=== PATIENT | female | born 1945 ===

== ENCOUNTER 2021-10-17 13:23 | Inpatient (IN) | payer OTHER ==
[~2021-10-17] VITALS: Ht 160 cm; Wt 98.9 kg
[2021-10-17 13:23] VITALS: BP_SYST 154
[2021-10-17] MEDS ORDERED: MORPHINE 4 MG INJ. 4 MG/ML VIAL IVP ONE ×2 (15:00→19:00)
[2021-10-17] MEDS ORDERED: NACL 0.9% 1,000 ML IV ONE (15:00)
[2021-10-17 15:25] LABS: BASOPHILS # (AUTO) 0.1 K/uL (0.0-0.2); BASOPHILS % (AUTO) 0.6 % (0.0-2.0); EOSINOPHILS # (AUTO) 0.1 K/uL (0.0-0.4); EOSINOPHILS % (AUTO) 1.6 % (0.0-4.0); HEMATOCRIT 40.6 % (36-48); HEMOGLOBIN 13.5 g/dL (12.0-16.0); LYMPHOCYTES # (AUTO) 2.3 K/uL (1.0-5.5); LYMPHOCYTES % (AUTO) 23.4 % (20.5-51.5); MEAN CORPUSCULAR HEMOGLOBIN 32 pg (27-31); MEAN CORPUSCULAR HGB CONC 33 % (32-36); MEAN CORPUSCULAR VOLUME 96 fL (79.0-98.0); MONOCYTES # (AUTO) 0.8 K/uL (0.0-1.0); MONOCYTES % (AUTO) 8.5 % (1.7-9.3); NEUTROPHILS # (AUTO) 6.3 K/uL (1.8-7.7); NEUTROPHILS % (AUTO) 65.9 % (40.0-70.0); PLATELET COUNT (AUTO) 178 K/uL (130-430); RED BLOOD CELL COUNT(AUTO) 4.24 MIL/uL (4.2-6.2); RED CELL DISTRIBUTION WIDTH 14.6 % (9.0-15.0); WHITE BLOOD COUNT (AUTO) 9.6 K/uL (4.8-10.8)
[2021-10-17 15:41] LABS: ANION GAP 9 (5-15); CALCIUM 9.1 mg/dL (8.4-11.0); CHLORIDE 103 mmol/L (98-107); CREATININE 0.82 mg/dL (0.55-1.30); GLUCOSE 98 mg/dL (70-99); SODIUM SERUM 139 mmol/L (136-145); UREA NITROGEN, BLOOD 21 mg/dL (8-21)
[2021-10-17 15:47] LABS: ALANINE AMINOTRANSFERASE 20 U/L (12-78); ALBUMIN 3.9 g/dL (3.4-4.8); ASPARTATE AMINOTRANSFERASE 20 U/L (10-37); TOTAL BILIRUBIN 1.4 mg/dL (0.0-1.0)
[2021-10-17] MEDS ORDERED: ONDANSETRON HCL 4 MG/2 ML VIAL IVP PRN (18:45)
[2021-10-17] MEDS ORDERED: ACETAMINOPHEN 325 MG TABLET PO PRN ×2 (18:45)
[2021-10-17] MEDS ORDERED: ONDANSETRON HCL 4 MG/2 ML VIAL IVP ONE (19:00)
[2021-10-17] MEDS ORDERED: LORazepam 2 MG/ML VIAL IVP ONE (19:00)
[2021-10-17] MEDS: LORazepam 2 MG/ML VIAL IVP PRN (19:07)
[2021-10-17 21:00] VITALS: BP_SYST 156
[2021-10-17] MEDS: D5/0.45 NS 1,000 ML IV SCH (22:59)
[2021-10-18 00:31] VITALS: BP_SYST 147
[2021-10-18] MEDS: traMADol HCL HCL 50 MG TABLET (ULTRAM) PO PRN ×4 (01:48→20:13)
[2021-10-18] MEDS ORDERED: POTA-178 PO (03:31)
[2021-10-18] MEDS ORDERED: LIP20 PO (03:31)
[2021-10-18] MEDS ORDERED: LOSA50TA3 PO (03:31)
[2021-10-18] MEDS ORDERED: METF-518 PO (03:31)
[2021-10-18] MEDS ORDERED: APIX5TAB PO (03:31)
[2021-10-18] MEDS ORDERED: ASPI-989 PO (03:31)
[2021-10-18] MEDS ORDERED: FURO-150 PO (03:31)
[2021-10-18] MEDS ORDERED: AMIO100T4 PO (03:31)
[2021-10-18] MEDS ORDERED: NEU300 PO ×2 (03:31)
[2021-10-18] MEDS: D5/0.45 NS 1,000 ML IV SCH ×2 (05:53→13:20)
[2021-10-18 08:00] VITALS: BP_SYST 138
[2021-10-18 08:01] LABS: BASOPHILS % (AUTO) 0.5 % (0.0-2.0); EOSINOPHILS # (AUTO) 0.2 K/uL (0.0-0.4); EOSINOPHILS % (AUTO) 2.6 % (0.0-4.0); HEMATOCRIT 35.7 % (36-48); MEAN CORPUSCULAR HEMOGLOBIN 32 pg (27-31); MEAN CORPUSCULAR HGB CONC 34 % (32-36); MEAN CORPUSCULAR VOLUME 96 fL (79.0-98.0); MONOCYTES # (AUTO) 0.9 K/uL (0.0-1.0); MONOCYTES % (AUTO) 10.2 % (1.7-9.3); NEUTROPHILS # (AUTO) 5.8 K/uL (1.8-7.7); NEUTROPHILS % (AUTO) 64.7 % (40.0-70.0); PLATELET COUNT (AUTO) 170 K/uL (130-430); RED BLOOD CELL COUNT(AUTO) 3.71 MIL/uL (4.2-6.2); RED CELL DISTRIBUTION WIDTH 14.6 % (9.0-15.0)
[2021-10-18] MEDS ORDERED: NALOXONE HCL 0.4 MG/ML AMP (NARCAN) IVP PRN (08:15)
[2021-10-18] MEDS: MORPHINE 2 MG/ML INJ. SYRINGE IVP PRN ×2 (12:27→18:02)
[2021-10-18] MEDS: POTASSIUM CHLORIDE 10 MEQ TAB.PRT.SR PO SCH (12:30)
[2021-10-18] MEDS: LOSARTAN POTASSIUM 50 MG TABLET (COZAAR) PO SCH (12:31)
[2021-10-18] MEDS: GABAPENTIN 300 MG CAPSULE PO SCH ×2 (12:31→20:24)
[2021-10-18] MEDS: FUROSEMIDE 20 MG TABLET PO SCH (12:31)
[2021-10-18 12:40] VITALS: BP_SYST 126
[2021-10-18 13:37] VITALS: BP_SYST 126
[2021-10-18 16:00] VITALS: BP_SYST 125
[2021-10-18 16:40] LABS: ANION GAP 11 (5-15); CALCIUM 8.3 mg/dL (8.4-11.0); CHLORIDE 105 mmol/L (98-107); CREATININE 0.77 mg/dL (0.55-1.30); GLUCOSE 101 mg/dL (70-99); POTASSIUM 4.1 mmol/L (3.5-5.1); SODIUM SERUM 143 mmol/L (136-145); UREA NITROGEN, BLOOD 19 mg/dL (8-21)
[2021-10-18 20:00] VITALS: BP_SYST 149
[2021-10-18] MEDS: ATORVASTATIN 20 MG TABLET PO SCH (20:23)
[2021-10-19] VITALS: BP_SYST 96
[2021-10-19] MEDS: D5/0.45 NS 1,000 ML IV SCH ×2 (05:15→18:16)
[2021-10-19 06:50] LABS: BASOPHILS % (AUTO) 0.2 % (0.0-2.0); EOSINOPHILS # (AUTO) 0.2 K/uL (0.0-0.4); EOSINOPHILS % (AUTO) 1.7 % (0.0-4.0); HEMATOCRIT 34.2 % (36-48); HEMOGLOBIN 11.7 g/dL (12.0-16.0); LYMPHOCYTES % (AUTO) 19.9 % (20.5-51.5); MEAN CORPUSCULAR HEMOGLOBIN 33 pg (27-31); MEAN CORPUSCULAR HGB CONC 34 % (32-36); MEAN CORPUSCULAR VOLUME 96 fL (79.0-98.0); MONOCYTES # (AUTO) 1.3 K/uL (0.0-1.0); MONOCYTES % (AUTO) 13.3 % (1.7-9.3); NEUTROPHILS # (AUTO) 6.4 K/uL (1.8-7.7); NEUTROPHILS % (AUTO) 64.9 % (40.0-70.0); PLATELET COUNT (AUTO) 164 K/uL (130-430); RED BLOOD CELL COUNT(AUTO) 3.58 MIL/uL (4.2-6.2); RED CELL DISTRIBUTION WIDTH 14.4 % (9.0-15.0); WHITE BLOOD COUNT (AUTO) 9.9 K/uL (4.8-10.8)
[2021-10-19] MEDS ORDERED: ENOXAPARIN SODIUM 40 MG/0.4 ML SYRINGE SUBCUT ONE (08:00)
[2021-10-19 08:28] VITALS: BP_SYST 117
[2021-10-19 09:11] LABS: ALANINE AMINOTRANSFERASE 20 U/L (12-78); ALBUMIN 2.9 g/dL (3.4-4.8); ANION GAP 8 (5-15); ASPARTATE AMINOTRANSFERASE 17 U/L (10-37); CALCIUM 7.9 mg/dL (8.4-11.0); CHLORIDE 103 mmol/L (98-107); CREATININE 0.97 mg/dL (0.55-1.30); GLUCOSE 136 mg/dL (70-99); POTASSIUM 4.3 mmol/L (3.5-5.1); SODIUM SERUM 137 mmol/L (136-145); TOTAL BILIRUBIN 2.1 mg/dL (0.0-1.0); UREA NITROGEN, BLOOD 16 mg/dL (8-21)
[2021-10-19] MEDS: MORPHINE 2 MG/ML INJ. SYRINGE IVP PRN ×2 (09:27→22:40)
[2021-10-19] MEDS: FUROSEMIDE 20 MG TABLET PO SCH (09:27)
[2021-10-19] MEDS: POTASSIUM CHLORIDE 10 MEQ TAB.PRT.SR PO SCH (09:27)
[2021-10-19] MEDS: GABAPENTIN 300 MG CAPSULE PO SCH ×2 (09:28→22:38)
[2021-10-19] MEDS: LOSARTAN POTASSIUM 50 MG TABLET (COZAAR) PO SCH (09:28)
[2021-10-19 12:00] VITALS: BP_SYST 118
[2021-10-19 13:21] VITALS: BP_SYST 127
[2021-10-19] MEDS: traMADol HCL HCL 50 MG TABLET (ULTRAM) PO PRN (13:35)
[2021-10-19 16:28] VITALS: BP_SYST 111
[2021-10-19] MEDS: ATORVASTATIN 20 MG TABLET PO SCH (22:38)
[2021-10-20] VITALS: BP_SYST 121
[2021-10-20] MEDS: D5/0.45 NS 1,000 ML IV SCH ×3 (05:00→16:58)
[2021-10-20] MEDS: traMADol HCL HCL 50 MG TABLET (ULTRAM) PO PRN (05:18)
[2021-10-20 07:21] VITALS: BP_SYST 126
[2021-10-20 07:34] LABS: BASOPHILS % (AUTO) 0.3 % (0.0-2.0); EOSINOPHILS % (AUTO) 0.4 % (0.0-4.0); HEMATOCRIT 33.6 % (36-48); HEMOGLOBIN 11.4 g/dL (12.0-16.0); LYMPHOCYTES # (AUTO) 1.3 K/uL (1.0-5.5); LYMPHOCYTES % (AUTO) 11.3 % (20.5-51.5); MEAN CORPUSCULAR HEMOGLOBIN 32 pg (27-31); MEAN CORPUSCULAR HGB CONC 34 % (32-36); MEAN CORPUSCULAR VOLUME 95 fL (79.0-98.0); MONOCYTES # (AUTO) 1.6 K/uL (0.0-1.0); MONOCYTES % (AUTO) 14.3 % (1.7-9.3); NEUTROPHILS # (AUTO) 8.4 K/uL (1.8-7.7); NEUTROPHILS % (AUTO) 73.7 % (40.0-70.0); PLATELET COUNT (AUTO) 159 K/uL (130-430); RED BLOOD CELL COUNT(AUTO) 3.53 MIL/uL (4.2-6.2); RED CELL DISTRIBUTION WIDTH 14.2 % (9.0-15.0); WHITE BLOOD COUNT (AUTO) 11.3 K/uL (4.8-10.8)
[2021-10-20 07:59] LABS: ANION GAP 8 (5-15); CALCIUM 8.1 mg/dL (8.4-11.0); CHLORIDE 102 mmol/L (98-107); CREATININE 0.74 mg/dL (0.55-1.30); GLUCOSE 158 mg/dL (70-99); POTASSIUM 3.9 mmol/L (3.5-5.1); SODIUM SERUM 135 mmol/L (136-145); UREA NITROGEN, BLOOD 13 mg/dL (8-21)
[2021-10-20 08:00] VITALS: BP_SYST 98
[2021-10-20] MEDS: LOSARTAN POTASSIUM 50 MG TABLET (COZAAR) PO SCH (09:00)
[2021-10-20] MEDS: POTASSIUM CHLORIDE 10 MEQ TAB.PRT.SR PO SCH (09:01)
[2021-10-20] MEDS: GABAPENTIN 300 MG CAPSULE PO SCH ×2 (09:01→21:40)
[2021-10-20] MEDS: FUROSEMIDE 20 MG TABLET PO SCH (09:02)
[2021-10-20] MEDS: MORPHINE 2 MG/ML INJ. SYRINGE IVP PRN ×2 (09:07→14:03)
[2021-10-20] MEDS ORDERED: INSULIN REGULAR, HUMAN 100 UNITS/ML, 10 ML VIAL SUBCUT SCH (11:30)
[2021-10-20 12:00] VITALS: BP_SYST 124
[2021-10-20 16:00] VITALS: BP_SYST 144
[2021-10-20 18:45] LABS: BILIRUBIN,URINE NEGATIVE (NEGATIVE); BLOOD, URINE 1+ (NEGATIVE); CLARITY/URINE CLEAR (CLEAR); COLOR,URINE YELLOW (YELLOW); GLUCOSE,URINE NEGATIVE (NEGATIVE); KETONES,URINE NEGATIVE (NEGATIVE); LEUKOCYTE ESTERASE ,URINE 1+ (NEGATIVE); NITRITE, URINE POSITIVE (NEGATIVE); PH,URINE 5.5 (5.0-8.0); PROTEIN URINE NEGATIVE (NEGATIVE); UROBILINOGEN,URINE 0.2 (0.2-1.0)
[2021-10-20 18:50] LABS: BACTERIA,URINE MANY /HPF (None Seen)
[2021-10-20 20:00] VITALS: BP_SYST 138
[2021-10-20] MEDS: ATORVASTATIN 20 MG TABLET PO SCH (21:40)
[2021-10-20] MEDS: ENOXAPARIN SODIUM 40 MG/0.4 ML SYRINGE SUBCUT SCH (21:41)
[2021-10-21 01:13] VITALS: BP_SYST 137
[2021-10-21] MEDS: D5/0.45 NS 1,000 ML IV SCH ×3 (02:08→21:12)
[2021-10-21] MEDS: MORPHINE 2 MG/ML INJ. SYRINGE IVP PRN ×2 (02:09→17:08)
[2021-10-21] MEDS: INSULIN REGULAR, HUMAN 100 UNITS/ML, 10 ML VIAL (humuLIN R) SUBCUT PRN ×3 (06:17→17:53)
[2021-10-21] MEDS ORDERED: ROCURONIUM BROMIDE 10 MG/ML (ZEMURON) ONE (07:00)
[2021-10-21] MEDS ORDERED: DEXAMETHASONE SOD PHOSPHATE 4 MG/ML VIAL ONE (07:00)
[2021-10-21] MEDS ORDERED: SEVOFLURANE 15 MIN GAS INH ONE (07:00)
[2021-10-21] MEDS ORDERED: LIDOCAINE 2%, 20 ML MDV ONE (07:00)
[2021-10-21] MEDS ORDERED: SUCCINYLCHOLINE CHLORIDE 20 MG/ML(QUELICIN) ONE (07:00)
[2021-10-21] MEDS ORDERED: NS 1000 ML IV.SOLN IV ONE (07:00)
[2021-10-21] MEDS ORDERED: CEFAZOLIN 2 GM IVPB PREMIX 50 ML IV ONE (07:00)
[2021-10-21] MEDS ORDERED: PROPOFOL 200MG/ 20ML VIAL (DIPRIVAN) IV ONE (07:00)
[2021-10-21] MEDS ORDERED: ONDANSETRON HCL 4 MG/2 ML VIAL ONE (07:00)
[2021-10-21 07:59] LABS: INR 1.1 (0.8-1.2); PROTHROMBIN TIME 11.4 SECS (9.5-12.5)
[2021-10-21 08:10] LABS: ANION GAP 7 (5-15); CALCIUM 8.1 mg/dL (8.4-11.0); CHLORIDE 103 mmol/L (98-107); CREATININE 0.71 mg/dL (0.55-1.30); GLUCOSE 150 mg/dL (70-99); SODIUM SERUM 136 mmol/L (136-145); UREA NITROGEN, BLOOD 9 mg/dL (8-21)
[2021-10-21 08:13] LABS: BASOPHILS % (AUTO) 0.4 % (0.0-2.0); EOSINOPHILS # (AUTO) 0.1 K/uL (0.0-0.4); EOSINOPHILS % (AUTO) 0.5 % (0.0-4.0); HEMATOCRIT 33.6 % (36-48); HEMOGLOBIN 11.5 g/dL (12.0-16.0); LYMPHOCYTES # (AUTO) 1.9 K/uL (1.0-5.5); LYMPHOCYTES % (AUTO) 16.5 % (20.5-51.5); MEAN CORPUSCULAR HEMOGLOBIN 33 pg (27-31); MEAN CORPUSCULAR HGB CONC 34 % (32-36); MEAN CORPUSCULAR VOLUME 95 fL (79.0-98.0); MONOCYTES # (AUTO) 1.4 K/uL (0.0-1.0); MONOCYTES % (AUTO) 12.2 % (1.7-9.3); NEUTROPHILS # (AUTO) 8.2 K/uL (1.8-7.7); NEUTROPHILS % (AUTO) 70.4 % (40.0-70.0); PLATELET COUNT (AUTO) 166 K/uL (130-430); RED BLOOD CELL COUNT(AUTO) 3.54 MIL/uL (4.2-6.2); RED CELL DISTRIBUTION WIDTH 13.8 % (9.0-15.0); WHITE BLOOD COUNT (AUTO) 11.7 K/uL (4.8-10.8)
[2021-10-21] MEDS ORDERED: ACETAMINOPHEN I.V. 1000 MG 100 ML IV ONE (09:00)
[2021-10-21] MEDS: LOSARTAN POTASSIUM 50 MG TABLET (COZAAR) PO SCH (09:00)
[2021-10-21] MEDS ORDERED: MORPHINE 4 MG INJ. 4 MG/ML VIAL IVP PRN (09:00)
[2021-10-21] MEDS ORDERED: ONDANSETRON HCL 4 MG/2 ML VIAL IVP PRN (09:00)
[2021-10-21] MEDS ORDERED: MORPHINE 2 MG/ML INJ. SYRINGE ONE ×2 (09:56→10:13)
[2021-10-21 10:55] VITALS: BP_SYST 132
[2021-10-21 12:00] VITALS: BP_SYST 104
[2021-10-21] MEDS: POTASSIUM CHLORIDE 10 MEQ TAB.PRT.SR PO SCH (12:23)
[2021-10-21] MEDS: GABAPENTIN 300 MG CAPSULE PO SCH ×2 (12:23→20:55)
[2021-10-21] MEDS: FUROSEMIDE 20 MG TABLET PO SCH (12:24)
[2021-10-21 16:00] VITALS: BP_SYST 117
[2021-10-21 20:00] VITALS: BP_SYST 135
[2021-10-21] MEDS: ATORVASTATIN 20 MG TABLET PO SCH (20:55)
[2021-10-21] MEDS: ENOXAPARIN SODIUM 40 MG/0.4 ML SYRINGE SUBCUT SCH (20:57)
[2021-10-21] MEDS: ceFAZolin SODIUM 1 GM in D5W 50 ML IV SCH (21:13)
[2021-10-21] MEDS: traMADol HCL HCL 50 MG TABLET (ULTRAM) PO PRN (21:21)
[2021-10-22] VITALS: BP_SYST 115
[2021-10-22] MEDS: traMADol HCL HCL 50 MG TABLET (ULTRAM) PO PRN (03:24)
[2021-10-22] MEDS: ceFAZolin SODIUM 1 GM in D5W 50 ML IV SCH ×3 (06:19→21:16)
[2021-10-22 07:44] LABS: BASOPHILS % (AUTO) 0.2 % (0.0-2.0); HEMATOCRIT 28.7 % (36-48); LYMPHOCYTES % (AUTO) 8.4 % (20.5-51.5); MEAN CORPUSCULAR HEMOGLOBIN 33 pg (27-31); MEAN CORPUSCULAR HGB CONC 35 % (32-36); MEAN CORPUSCULAR VOLUME 95 fL (79.0-98.0); MONOCYTES # (AUTO) 1.4 K/uL (0.0-1.0); MONOCYTES % (AUTO) 11.6 % (1.7-9.3); NEUTROPHILS # (AUTO) 9.7 K/uL (1.8-7.7); NEUTROPHILS % (AUTO) 79.8 % (40.0-70.0); PLATELET COUNT (AUTO) 199 K/uL (130-430); RED BLOOD CELL COUNT(AUTO) 3.02 MIL/uL (4.2-6.2); RED CELL DISTRIBUTION WIDTH 13.8 % (9.0-15.0); WHITE BLOOD COUNT (AUTO) 12.1 K/uL (4.8-10.8)
[2021-10-22 07:47] LABS: ANION GAP 9 (5-15); CALCIUM 8.1 mg/dL (8.4-11.0); CHLORIDE 104 mmol/L (98-107); CREATININE 0.75 mg/dL (0.55-1.30); GLUCOSE 150 mg/dL (70-99); POTASSIUM 4.1 mmol/L (3.5-5.1); SODIUM SERUM 139 mmol/L (136-145); UREA NITROGEN, BLOOD 12 mg/dL (8-21)
[2021-10-22 08:00] VITALS: BP_SYST 131
[2021-10-22] MEDS: D5/0.45 NS 1,000 ML IV SCH ×2 (09:16→17:00)
[2021-10-22] MEDS: GABAPENTIN 300 MG CAPSULE PO SCH ×2 (09:16→21:04)
[2021-10-22] MEDS: POTASSIUM CHLORIDE 10 MEQ TAB.PRT.SR PO SCH (09:16)
[2021-10-22] MEDS: FUROSEMIDE 20 MG TABLET PO SCH (09:17)
[2021-10-22] MEDS: LOSARTAN POTASSIUM 50 MG TABLET (COZAAR) PO SCH (09:17)
[2021-10-22 09:42] LABS: C-REACTIVE PROTEIN QUANT 18.9 mg/dL (0-0.5)
[2021-10-22 11:40] VITALS: BP_SYST 137
[2021-10-22 11:59] LABS: ERYTHROCYTE SEDIMENTATION RATE 83 MM/HR (0-20)
[2021-10-22 12:00] VITALS: BP_SYST 126
[2021-10-22] MEDS: MORPHINE 2 MG/ML INJ. SYRINGE IVP PRN (14:26)
[2021-10-22 16:00] VITALS: BP_SYST 126
[2021-10-22 20:34] VITALS: BP_SYST 145
[2021-10-22] MEDS: ATORVASTATIN 20 MG TABLET PO SCH (21:03)
[2021-10-22] MEDS: ENOXAPARIN SODIUM 40 MG/0.4 ML SYRINGE SUBCUT SCH (21:03)
[2021-10-23] MEDS: LORazepam 2 MG/ML VIAL IVP PRN ×2 (00:31→20:20)
[2021-10-23 00:53] VITALS: BP_SYST 162
[2021-10-23] MEDS: D5/0.45 NS 1,000 ML IV SCH (05:32)
[2021-10-23] MEDS: ceFAZolin SODIUM 1 GM in D5W 50 ML IV SCH ×3 (05:33→23:03)
[2021-10-23] MEDS: MORPHINE 2 MG/ML INJ. SYRINGE IVP PRN (05:44)
[2021-10-23 07:25] LABS: BASOPHILS # (AUTO) 0.1 K/uL (0.0-0.2); BASOPHILS % (AUTO) 0.7 % (0.0-2.0); EOSINOPHILS # (AUTO) 0.2 K/uL (0.0-0.4); EOSINOPHILS % (AUTO) 1.6 % (0.0-4.0); HEMATOCRIT 29.9 % (36-48); HEMOGLOBIN 10.4 g/dL (12.0-16.0); LYMPHOCYTES # (AUTO) 1.8 K/uL (1.0-5.5); MEAN CORPUSCULAR HEMOGLOBIN 33 pg (27-31); MEAN CORPUSCULAR HGB CONC 35 % (32-36); MEAN CORPUSCULAR VOLUME 95 fL (79.0-98.0); MONOCYTES # (AUTO) 1.1 K/uL (0.0-1.0); MONOCYTES % (AUTO) 11.4 % (1.7-9.3); NEUTROPHILS # (AUTO) 6.7 K/uL (1.8-7.7); NEUTROPHILS % (AUTO) 68.3 % (40.0-70.0); PLATELET COUNT (AUTO) 247 K/uL (130-430); RED BLOOD CELL COUNT(AUTO) 3.15 MIL/uL (4.2-6.2); RED CELL DISTRIBUTION WIDTH 14.1 % (9.0-15.0); WHITE BLOOD COUNT (AUTO) 9.9 K/uL (4.8-10.8)
[2021-10-23 08:00] VITALS: BP_SYST 147
[2021-10-23] MEDS: GABAPENTIN 300 MG CAPSULE PO SCH ×2 (08:38→20:18)
[2021-10-23] MEDS: FUROSEMIDE 20 MG TABLET PO SCH (08:38)
[2021-10-23] MEDS: LOSARTAN POTASSIUM 50 MG TABLET (COZAAR) PO SCH (08:38)
[2021-10-23] MEDS: POTASSIUM CHLORIDE 10 MEQ TAB.PRT.SR PO SCH (08:39)
[2021-10-23 09:42] LABS: ERYTHROCYTE SEDIMENTATION RATE 87 MM/HR (0-20)
[2021-10-23 09:56] LABS: ALANINE AMINOTRANSFERASE 58 U/L (12-78); ALBUMIN 2.2 g/dL (3.4-4.8); ANION GAP 7 (5-15); ASPARTATE AMINOTRANSFERASE 62 U/L (10-37); C-REACTIVE PROTEIN QUANT 14.1 mg/dL (0-0.5); CALCIUM 8.3 mg/dL (8.4-11.0); CHLORIDE 105 mmol/L (98-107); CREATININE 0.72 mg/dL (0.55-1.30); GLUCOSE 91 mg/dL (70-99); SODIUM SERUM 140 mmol/L (136-145); TOTAL BILIRUBIN 1.2 mg/dL (0.0-1.0); UREA NITROGEN, BLOOD 15 mg/dL (8-21)
[2021-10-23 12:00] VITALS: BP_SYST 147
[2021-10-23] MEDS: NORMAL SALINE 5 ML DISP.SYRIN IVF SCH ×2 (14:02→23:03)
[2021-10-23] MEDS: traMADol HCL HCL 50 MG TABLET (ULTRAM) PO PRN (14:11)
[2021-10-23 16:40] VITALS: BP_SYST 143
[2021-10-23 20:00] VITALS: BP_SYST 158
[2021-10-23] MEDS: ENOXAPARIN SODIUM 40 MG/0.4 ML SYRINGE SUBCUT SCH (20:18)
[2021-10-23] MEDS: ATORVASTATIN 20 MG TABLET PO SCH (20:18)
[2021-10-24 00:08] VITALS: BP_SYST 142
[2021-10-24] MEDS: traMADol HCL HCL 50 MG TABLET (ULTRAM) PO PRN ×3 (00:44→14:14)
[2021-10-24] MEDS: LORazepam 2 MG/ML VIAL IVP PRN (01:33)
[2021-10-24] MEDS: ceFAZolin SODIUM 1 GM in D5W 50 ML IV SCH ×3 (05:03→21:14)
[2021-10-24] MEDS: NORMAL SALINE 5 ML DISP.SYRIN IVF SCH ×3 (05:04→21:15)
[2021-10-24 05:34] LABS: BASOPHILS # (AUTO) 0.1 K/uL (0.0-0.2); BASOPHILS % (AUTO) 0.8 % (0.0-2.0); EOSINOPHILS # (AUTO) 0.2 K/uL (0.0-0.4); EOSINOPHILS % (AUTO) 2.2 % (0.0-4.0); HEMATOCRIT 31.3 % (36-48); HEMOGLOBIN 10.9 g/dL (12.0-16.0); LYMPHOCYTES # (AUTO) 1.6 K/uL (1.0-5.5); LYMPHOCYTES % (AUTO) 17.7 % (20.5-51.5); MEAN CORPUSCULAR HEMOGLOBIN 33 pg (27-31); MEAN CORPUSCULAR HGB CONC 35 % (32-36); MEAN CORPUSCULAR VOLUME 95 fL (79.0-98.0); MONOCYTES # (AUTO) 1.2 K/uL (0.0-1.0); MONOCYTES % (AUTO) 13.3 % (1.7-9.3); NEUTROPHILS # (AUTO) 5.9 K/uL (1.8-7.7); PLATELET COUNT (AUTO) 256 K/uL (130-430); RED CELL DISTRIBUTION WIDTH 13.9 % (9.0-15.0)
[2021-10-24 08:00] VITALS: BP_SYST 145
[2021-10-24] MEDS: POTASSIUM CHLORIDE 10 MEQ TAB.PRT.SR PO SCH (08:26)
[2021-10-24] MEDS: GABAPENTIN 300 MG CAPSULE PO SCH ×2 (08:26→20:33)
[2021-10-24] MEDS: FUROSEMIDE 20 MG TABLET PO SCH (08:27)
[2021-10-24] MEDS: LOSARTAN POTASSIUM 50 MG TABLET (COZAAR) PO SCH (08:27)
[2021-10-24 08:28] LABS: ANION GAP 7 (5-15); C-REACTIVE PROTEIN QUANT 14.3 mg/dL (0-0.5); CALCIUM 8.7 mg/dL (8.4-11.0); CHLORIDE 103 mmol/L (98-107); CREATININE 0.69 mg/dL (0.55-1.30); GLUCOSE 104 mg/dL (70-99); POTASSIUM 3.9 mmol/L (3.5-5.1); SODIUM SERUM 137 mmol/L (136-145); UREA NITROGEN, BLOOD 16 mg/dL (8-21)
[2021-10-24 12:41] VITALS: BP_SYST 111
[2021-10-24 15:54] LABS: ERYTHROCYTE SEDIMENTATION RATE 73 MM/HR (0-20)
[2021-10-24 16:30] VITALS: BP_SYST 116
[2021-10-24 20:00] VITALS: BP_SYST 160
[2021-10-24] MEDS: APIXABAN 2.5 MG TABLET PO SCH (20:32)
[2021-10-24] MEDS: ATORVASTATIN 20 MG TABLET PO SCH (20:33)
[2021-10-25 00:15] VITALS: BP_SYST 141
[2021-10-25 04:20] LABS: BASOPHILS # (AUTO) 0.1 K/uL (0.0-0.2); BASOPHILS % (AUTO) 0.6 % (0.0-2.0); EOSINOPHILS # (AUTO) 0.1 K/uL (0.0-0.4); EOSINOPHILS % (AUTO) 1.2 % (0.0-4.0); HEMATOCRIT 34.6 % (36-48); HEMOGLOBIN 11.9 g/dL (12.0-16.0); LYMPHOCYTES # (AUTO) 2.1 K/uL (1.0-5.5); LYMPHOCYTES % (AUTO) 19.2 % (20.5-51.5); MEAN CORPUSCULAR HEMOGLOBIN 32 pg (27-31); MEAN CORPUSCULAR HGB CONC 34 % (32-36); MEAN CORPUSCULAR VOLUME 94 fL (79.0-98.0); MONOCYTES # (AUTO) 1.2 K/uL (0.0-1.0); MONOCYTES % (AUTO) 11.1 % (1.7-9.3); NEUTROPHILS # (AUTO) 7.3 K/uL (1.8-7.7); NEUTROPHILS % (AUTO) 67.9 % (40.0-70.0); PLATELET COUNT (AUTO) 323 K/uL (130-430); RED BLOOD CELL COUNT(AUTO) 3.69 MIL/uL (4.2-6.2); RED CELL DISTRIBUTION WIDTH 14.3 % (9.0-15.0); WHITE BLOOD COUNT (AUTO) 10.7 K/uL (4.8-10.8)
[2021-10-25 04:54] LABS: ANION GAP 7 (5-15); CALCIUM 8.7 mg/dL (8.4-11.0); CHLORIDE 104 mmol/L (98-107); CREATININE 0.64 mg/dL (0.55-1.30); GLUCOSE 107 mg/dL (70-99); SODIUM SERUM 138 mmol/L (136-145); UREA NITROGEN, BLOOD 15 mg/dL (8-21)
[2021-10-25] MEDS: ceFAZolin SODIUM 1 GM in D5W 50 ML IV SCH ×3 (05:05→21:08)
[2021-10-25] MEDS: NORMAL SALINE 5 ML DISP.SYRIN IVF SCH ×3 (05:05→21:08)
[2021-10-25 05:27] LABS: ERYTHROCYTE SEDIMENTATION RATE 87 MM/HR (0-20)
[2021-10-25] MEDS: traMADol HCL HCL 50 MG TABLET (ULTRAM) PO PRN ×3 (07:56→20:42)
[2021-10-25] MEDS: POTASSIUM CHLORIDE 10 MEQ TAB.PRT.SR PO SCH (07:57)
[2021-10-25] MEDS: ASPIRIN 325 MG TABLET PO SCH (07:57)
[2021-10-25] MEDS: APIXABAN 2.5 MG TABLET PO SCH ×2 (07:57→20:41)
[2021-10-25] MEDS: LOSARTAN POTASSIUM 50 MG TABLET (COZAAR) PO SCH (07:58)
[2021-10-25] MEDS: GABAPENTIN 300 MG CAPSULE PO SCH ×2 (07:58→20:41)
[2021-10-25] MEDS: FUROSEMIDE 20 MG TABLET PO SCH (07:58)
[2021-10-25 08:00] VITALS: BP_SYST 145
[2021-10-25] MEDS ORDERED: PARoxetine HCL 20 MG TABLET PO ONE (10:15)
[2021-10-25 12:36] VITALS: BP_SYST 152
[2021-10-25] MEDS ORDERED: METOPROLOL TARTRATE 25 MG TABLET PO ONE (13:00)
[2021-10-25 16:00] VITALS: BP_SYST 154
[2021-10-25 16:51] VITALS: BP_SYST 146
[2021-10-25 20:00] VITALS: BP_SYST 150
[2021-10-25] MEDS: ATORVASTATIN 20 MG TABLET PO SCH (20:42)
[2021-10-25] MEDS: DOCUSATE SODIUM 100 MG CAPSULE PO SCH (20:42)
[2021-10-25] MEDS: METOPROLOL TARTRATE 25 MG TABLET PO SCH (20:43)
[2021-10-26 00:10] VITALS: BP_SYST 118
[2021-10-26] MEDS: ceFAZolin SODIUM 1 GM in D5W 50 ML IV SCH (05:08)
[2021-10-26] MEDS: NORMAL SALINE 5 ML DISP.SYRIN IVF SCH ×2 (05:08→14:03)
[2021-10-26 07:40] LABS: BASOPHILS % (AUTO) 0.4 % (0.0-2.0); EOSINOPHILS # (AUTO) 0.2 K/uL (0.0-0.4); EOSINOPHILS % (AUTO) 1.7 % (0.0-4.0); HEMATOCRIT 32.9 % (36-48); HEMOGLOBIN 11.2 g/dL (12.0-16.0); LYMPHOCYTES # (AUTO) 2.1 K/uL (1.0-5.5); LYMPHOCYTES % (AUTO) 18.5 % (20.5-51.5); MEAN CORPUSCULAR HEMOGLOBIN 32 pg (27-31); MEAN CORPUSCULAR HGB CONC 34 % (32-36); MEAN CORPUSCULAR VOLUME 95 fL (79.0-98.0); MONOCYTES # (AUTO) 1.2 K/uL (0.0-1.0); MONOCYTES % (AUTO) 10.8 % (1.7-9.3); NEUTROPHILS # (AUTO) 7.8 K/uL (1.8-7.7); NEUTROPHILS % (AUTO) 68.6 % (40.0-70.0); PLATELET COUNT (AUTO) 369 K/uL (130-430); RED BLOOD CELL COUNT(AUTO) 3.47 MIL/uL (4.2-6.2); WHITE BLOOD COUNT (AUTO) 11.3 K/uL (4.8-10.8)
[2021-10-26 08:00] VITALS: BP_SYST 135
[2021-10-26] MEDS: ASPIRIN 325 MG TABLET PO SCH (08:42)
[2021-10-26] MEDS: DOCUSATE SODIUM 100 MG CAPSULE PO SCH (08:42)
[2021-10-26] MEDS: GABAPENTIN 300 MG CAPSULE PO SCH (08:42)
[2021-10-26] MEDS: METOPROLOL TARTRATE 25 MG TABLET PO SCH (08:43)
[2021-10-26] MEDS: LOSARTAN POTASSIUM 50 MG TABLET (COZAAR) PO SCH (08:44)
[2021-10-26] MEDS: POTASSIUM CHLORIDE 10 MEQ TAB.PRT.SR PO SCH (08:45)
[2021-10-26] MEDS: FUROSEMIDE 20 MG TABLET PO SCH (08:45)
[2021-10-26] MEDS: APIXABAN 2.5 MG TABLET PO SCH (08:45)
[2021-10-26 08:54] LABS: ALANINE AMINOTRANSFERASE 39 U/L (12-78); ALBUMIN 2.3 g/dL (3.4-4.8); ANION GAP 7 (5-15); ASPARTATE AMINOTRANSFERASE 37 U/L (10-37); C-REACTIVE PROTEIN QUANT 10.8 mg/dL (0-0.5); CALCIUM 7.7 mg/dL (8.4-11.0); CHLORIDE 103 mmol/L (98-107); CREATININE 0.66 mg/dL (0.55-1.30); GLUCOSE 94 mg/dL (70-99); SODIUM SERUM 138 mmol/L (136-145); TOTAL BILIRUBIN 1.5 mg/dL (0.0-1.0); UREA NITROGEN, BLOOD 13 mg/dL (8-21)
[2021-10-26] MEDS: traMADol HCL HCL 50 MG TABLET (ULTRAM) PO PRN ×2 (08:54→15:53)
[2021-10-26] MEDS ORDERED: PARoxetine HCL 20 MG TABLET PO SCH (09:00)
[2021-10-26] MEDS ORDERED: TRAM50TA2 PO (09:23)
[2021-10-26] MEDS ORDERED: PARO-41 PO (09:23)
[2021-10-26] MEDS ORDERED: DOCU-144 PO (09:23)
[2021-10-26] MEDS ORDERED: METO25TA6 PO (09:23)
[2021-10-26] MEDS ORDERED: CEFA1FRO IV (09:23)
[2021-10-26 11:23] VITALS: BP_SYST 132
[2021-10-26] MEDS ORDERED: MAGNESIUM CITRATE 300 ML ORAL SOLUTION PO ONE (11:30)
[2021-10-26 12:00] VITALS: BP_SYST 140
[2021-10-26 12:22] LABS: ERYTHROCYTE SEDIMENTATION RATE 86 MM/HR (0-20)
[2021-10-26 15:30] VITALS: BP_SYST 130
[2021-10-26 16:00] VITALS: BP_SYST 132
== END 2021-10-26 15:00 | DRG 853 ==
LOC: SED 13:23 → SMU 16:47 → STU 10-21 08:59 → SMU 10-23 15:45
PROVIDERS: ADMIT Preventive Medicine Preventive Medicine/Occupational Environmental Medicine; ATTEND Preventive Medicine Preventive Medicine/Occupational Environmental Medicine
PROC: 0QH634Z Insertion of Internal Fixation Device into Right Upper Femur, Percutaneous Approach (ICD-10-PCS; principal; 2021-10-21 07:55)
DX: A41.9 Sepsis, unspecified organism (principal); S72.141A Displaced intertrochanteric fracture of right femur, initial encounter for closed fracture; E87.1 Hypo-osmolality and hyponatremia; N39.0 Urinary tract infection, site not specified; M81.0 Age-related osteoporosis without current pathological fracture; M19.90 Unspecified osteoarthritis, unspecified site; S40.021A Contusion of right upper arm, initial encounter; S41.111A Laceration without foreign body of right upper arm, initial encounter; E11.9 Type 2 diabetes mellitus without complications; I25.10 Atherosclerotic heart disease of native coronary artery without angina pectoris; W01.0XXA Fall on same level from slipping, tripping and stumbling without subsequent striking against object, initial encounter; Z96.651 Presence of right artificial knee joint; I48.91 Unspecified atrial fibrillation; E66.9 Obesity, unspecified; E83.51 Hypocalcemia; E78.5 Hyperlipidemia, unspecified; Z20.822 Contact with and (suspected) exposure to COVID-19; D64.9 Anemia, unspecified; E83.52 Hypercalcemia; I10 Essential (primary) hypertension; Z79.01 Long term (current) use of anticoagulants; Z95.1 Presence of aortocoronary bypass graft; Z88.2 Allergy status to sulfonamides; Y93.89 Activity, other specified; Y92.89 Other specified places as the place of occurrence of the external cause; Y99.8 Other external cause status; Z79.899 Other long term (current) drug therapy; Z68.38 Body mass index [BMI] 38.0-38.9, adult
CPT/HCPCS: 36415; 70450-TC; 71045; 72125-TC; 72192-TC; 73090; 73502; 73552; 76000; 76376; 80048; 80053; 81000; 82948; 82962; 85025; 85610-TC; 85651-TC; 86140; 86886; 86900; 86901; 87040; 87081; 87086; 93005; 93306; 97116-GP; 97530-GP; 99285; C1713; G0378; J0330; J0690; J1100; J1650; J1815; J1956; J2001; J2060; J2270; J2405; J2704; J7030; J7060